=== PATIENT | female | born 1970 | race Caucasian/White ===

== ENCOUNTER → 2018-08-01 15:11 | Outpatient (CLI) | payer OTHER, SELFPAY ==
--- NOTE | 2018-08-01 15:16 | BI_ITS ---
MAMMOGRAPHY - BILATERAL SCREENING REASON FOR EXAM: Female, 48 years old. Routine annual screening examination. PERTINENT HISTORY: Grandmother with breast cancer. TECHNIQUE: Digital bilateral breast abby (3D mammographic acquisition) in the CC and MLO projections. 2-D mediolateral oblique (MLO) and craniocaudad (CC) views of both breasts were obtained. CAD: Full Field Digital Mammography with Computer Added Detection was performed. COMPARISON: Comparison is made with prior study June 12, 2017 and June 06, 2016. FINDINGS: Breast Composition: The breasts are heterogeneously dense, which may obscure small masses. There are no dominant masses or suspicious calcifications. Stable asymmetry of breast tissue but normal breast tissue seen in the right breast as compared to the left side. No other significant abnormalities are identified. There has been no significant change since the prior study. BI/SCREENING MAMM (CAD), BILAT IMPRESSION: Stable bilateral screening mammogram. Yearly follow-up mammogram recommended. (A) ASSESSMENT CATEGORY: BIRADS Category 2: Benign. A letter regarding these results will be sent to the patient by the facility within 30 days. Approximately 10% of breast cancers are not detected by mammography. A normal mammogram should not delay biopsy of a clinically suspicious abnormality. [id number] Electronically Signed: Lusi Radford MD at 16:01 EDT Tel [phone], Service support ,
== END ==
PROVIDERS: Family Provider Family Medicine; PCP Family Medicine; Visit Provider Family Medicine
DX: Z12.31 Encounter for screening mammogram for malignant neoplasm of breast (principal)
CPT/HCPCS: 77063; 77067

== ENCOUNTER → 2019-08-07 14:48 | Outpatient (CLI) | payer OTHER, SELFPAY ==
--- NOTE | 2019-08-07 14:50 | BI_ITS ---
MAMMOGRAPHY - BILATERAL SCREENING REASON FOR EXAM: Female, 49 years old. Routine annual screening examination. PERTINENT HISTORY: Grandmother with breast cancer. TECHNIQUE: Digital bilateral breast pelon (3D mammographic acquisition) in the CC and MLO projections. 2-D mediolateral oblique (MLO) and craniocaudad (CC) views of both breasts were obtained. CAD: Full Field Digital Mammography with Computer Added Detection was performed. COMPARISON: Comparison is made with prior study dated August 01, 2018 and June 12, 2017. FINDINGS: Breast Composition: The breasts are heterogeneously dense, which may obscure small masses. There are no dominant masses or suspicious calcifications. Stable asymmetry of breast tissue were more breast tissue is seen in the right breast as compared to the left side. No other significant abnormalities are identified. There has been no significant change since the prior study. BI/SCREEN MAMM (CAD) W/PELON BILAT IMPRESSION: Stable bilateral screening mammogram. Yearly follow-up mammogram recommended. (A) ASSESSMENT CATEGORY: BIRADS Category 2: Benign. A letter regarding these results will be sent to the patient by the facility within 30 days. Approximately 10% of breast cancers are not detected by mammography. A normal mammogram should not delay biopsy of a clinically suspicious abnormality. [id number] Electronically Signed: Luis Radford, at 8:30 EST , Service support ,
== END ==
PROVIDERS: Family Provider Family Medicine; PCP Family Medicine; Referring Provider Family Medicine; Visit Provider Family Medicine
DX: Z12.31 Encounter for screening mammogram for malignant neoplasm of breast (principal)
CPT/HCPCS: 77063; 77067

== ENCOUNTER → 2019-11-12 15:54 | Outpatient (CLI) | payer OTHER, SELFPAY ==
[2019-11-12 17:32] LABS: Absolute Lymphocyte Count 1.92 X10^3/uL (0.83-4.51); Basophil# 0.02 X10^3/uL; Basophil% 0.4 % (0-1); Eosinophil# 0.05 X10^3/uL; Eosinophils% 0.9 % (0-5); Hematocrit 40.1 % (37-47); Hemoglobin 13.7 g/dL (12.0-15.0); Lymphocyte # 1.92 X10^3/ul (4.0); Mean Corp Hgb Conc 34.2 g/dL (32-36); Mean Corpuscular Hgb 29.9 pg (27.0-32.0); Mean Corpuscular Volume 87.6 fL (81-99); Monocyte# 0.36 X10^3/uL; Monocyte% 6.8 % (0-10); NRBC Flagged by Analyzer 0 % (0-5); Neutrophil # 2.97 X10^3/uL (2.7-7.7); Neutrophil % 55.7 % (47-70); Platelet Count 251 K/mm3 (150-450); RBC Distribution Width CV 12.2 % (11.6-14.6); RBC Distribution Width SD 39.4 fl (35.1-43.9); Red Blood Count 4.58 M/mm3 (4.2-5.4); White Blood Count 5.3 K/mm3 (4.4-11.0)
[2019-11-12 17:51] LABS: ALB/GLOB Ratio 1.1 RATIO (0.9-2.4); AST(SGOT) 13 U/L (15-37); Alanine Aminotransfer ALT/SGPT 32 U/L (13-56); Albumin, Serum 3.9 g/dL (3.2-5.0); Alkaline Phosphatase 65 U/L (45-117); Anion Gap 5 (5-15); BUN 14 mg/dL (7-18); BUN/Creat Ratio 16.1 RATIO (10-20); Calcium,Total 9.6 mg/dL (8.5-10.1); Chloride 109 mmol/L (98-107); Creatinine, Serum 0.87 mg/dL (0.55-1.02); EST Glomerular Filtration Rate 73 mL/min (>60); Est Glom Filt Rate - Afr Amer 89 mL/min (>60); Globulin 3.6 g/dL (2.2-4.2); Glucose 85 mg/dL (74-106); Potassium 3.7 mmol/L (3.5-5.1); Protein, Total 7.5 g/dL (6.4-8.2); Sodium Level 140 mmol/L (136-145); Thyroid Stim Hormone (TSH) 1.95 uIU/mL (0.358-3.74)
== END ==
PROVIDERS: PCP Family Medicine; Visit Provider Family Medicine
DX: K76.0 Fatty (change of) liver, not elsewhere classified (principal); R53.83 Other fatigue
CPT/HCPCS: 36415; 80053; 84443; 85025

== ENCOUNTER 2019-11-26 07:58 | Day surgery (SDC) | payer OTHER, SELFPAY ==
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
[2019-11-26 08:26] VITALS: BP 146/86; PULSE 80; RESP 16; TEMP 37; O2SAT 98; BMI 31.3
[2019-11-26] MEDS: Lactated Ringers 1,000 ML 100 ML IV (08:40)
--- NOTE | 2019-11-26 09:15 | COLBX_PTH ---
PATIENT: JT MONTE LOC: EN U#:[id number] AGE/SX: 49/F ROOM: RE11/26/[address]: Dr. Rosio Matute MD : 1970 BED: DIS: 11/26/2019 SPEC #: [id number] RECD: 11/26/19 09:51 STATUS: TOMY YVETTE #: [id number] CEDRIC: 11/26/19 09:[address]: Rosio Matute DEPT: SURGICAL PATHOLOGY RECD BY: Partha Gaspar ENTERED: 11/26/19 10:26 SP TYPE: COLON BX OTHR DR: MD Jerel West Tissues: Cecum, NOS Procedures: Surgery Specimen Level IV HEADER OPERATION: Colonoscopy - open access (MAC) PRE-OP DIAGNOSIS: Screening TISSUE SUBMITTED: Cecum polyp MICROSCOPIC DIAGNOSIS Cecal polyp, biopsy: Fragments of tubular adenoma. AM:singh 11/27/19 MICROSCOPIC DESCRIPTION Slides are reviewed. GROSS DESCRIPTION Received in fixative is one container labeled with the patient's name and designated cecum polyp. The specimen consists of multiple irregular fragments of light meier soft tissue that in aggregate measure 0.7 x 0.5 x 0.2 cm. The specimen is totally submitted in one cassette. / EVA:singh 11/26/19 TC:5 CPT: 55066
[2019-11-26 09:25] VITALS: BP 131/78; BP 148/86; PULSE 83; RESP 16; TEMP 36.6; O2SAT 96
--- NOTE | 2019-11-26 09:27 | OP.COLON_ITS ---
Patient Name: Mare Lozano Procedure Date: 11/26/2019 8:47 AM Date of : 1970 Age: 49 Procedure: Colonoscopy Indications: Screening for colorectal malignant neoplasm, Screening in patient at increased risk: Colorectal cancer in mother 60 or older Providers: Rosio Matute MD Referring MD: Jerel Moffett Medicines: Monitored Anesthesia Care Patient Profile: This is a 49 year old female. Last Colonoscopy: none. The patient's first colonoscopy is today. Complications: No immediate complications. Procedure: Pre-Anesthesia Assessment: - Prior to the procedure, a History and Physical was performed, and patient medications and allergies were reviewed. The patient's tolerance of previous anesthesia was also reviewed. The risks and benefits of the procedure and the sedation options and risks were discussed with the patient. All questions were answered, and informed consent was obtained. Prior Anticoagulants: The patient has taken no previous anticoagulant or antiplatelet agents. ASA Grade Assessment: Per anesthesia. After reviewing the risks and benefits, the patient was deemed in satisfactory condition to undergo the procedure. After I obtained informed consent, the scope was passed under direct vision. Throughout the procedure, the patient's blood pressure, pulse, and oxygen saturations were monitored continuously. The pediatric colonoscope was introduced through the anus and advanced to the cecum, identified by the appendiceal orifice, ileocecal valve and palpation. The colonoscopy was performed without difficulty. The patient tolerated the procedure well. The quality of the bowel preparation was good. Scope In: 9:00:25 AM Scope Withdrawal Time 0 hours 8 minutes 27 seconds Scope Out: 9:18:53 AM Total Procedure Duration Time 0 hours 18 minutes 28 seconds Findings: The perianal and digital rectal examinations were normal. A 5 mm polyp was found in the cecum. The polyp was semi-pedunculated. The polyp was removed with a hot snare. Resection and retrieval were complete. A few small-mouthed diverticula were found in the sigmoid colon, descending colon and ascending colon. The exam was otherwise without abnormality on direct and retroflexion views. Impression: - One 5 mm polyp in the cecum, removed with a hot snare. Resected and retrieved. - Diverticulosis in the sigmoid colon, in the descending colon and in the ascending colon. - The examination was otherwise normal on direct and retroflexion views. Recommendation: - Discharge patient to home. - High fiber diet. - Continue present medications. - Await pathology results. - Repeat colonoscopy in 3 - 5 years for surveillance based on pathology results. Procedure Code(s): --- Professional --- 09607, PT, Colonoscopy, flexible; with removal of tumor(s), polyp(s), or other lesion(s) by snare technique Diagnosis Code(s): --- Professional --- Z12.11, Encounter for screening for malignant neoplasm of colon Z80.0, Family history of malignant neoplasm of digestive organs D12.0, Benign neoplasm of cecum K57.30, Diverticulosis of large intestine without perforation or abscess without bleeding CPT copyright 2017 [employer]. All rights reserved. The codes documented in this report are preliminary and upon social economist review may be revised to meet current compliance requirements. MD Rosio Carmen MD 11/26/2019 9:27:29 AM This report has been signed electronically. Number of Addenda: 0 Note Initiated On: 11/26/2019 8:47 AM
--- NOTE | 2019-11-26 09:28 | OP.CCLET_ITS ---
11/26/2019 Jerel Moffett Re : Colonoscopy procedure for Mare Lozano Dear Zuhair This procedure was performed on Tuesday, November 26, 2019. My impressions and recommendations are as follows: Impressions : - One 5 mm polyp in the cecum, removed with a hot snare. Resected and retrieved. - Diverticulosis in the sigmoid colon, in the descending colon and in the ascending colon. - The examination was otherwise normal on direct and retroflexion views. Recommendations : - Discharge patient to home. - High fiber diet. - Continue present medications. - Await pathology results. - Repeat colonoscopy in 3 - 5 years for surveillance based on pathology results. My findings are described in the full procedure note, which is enclosed. If I can be of further assistance, please feel free to contact me at Doctor phone number(s): , Work: . Sincerely, MD Rosio Carmen MD 11/26/2019 9:27:29 AM This report has been signed electronically.
[2019-11-26 09:30] VITALS: BP 125/85; BP 148/86; PULSE 80; RESP 16; O2SAT 98
[2019-11-26 09:35] VITALS: BP 128/75; BP 148/86; PULSE 65; RESP 16; O2SAT 98
[2019-11-26 09:46] VITALS: BP 121/83; BP 148/86; PULSE 72; RESP 16; TEMP 36.5; O2SAT 98
[2019-11-26 10:03] VITALS: BP 148/86
== END 2019-11-26 10:46 | disposition home or self-care (01) ==
LOC: EN 07:59 → AC 08:02
PROVIDERS: PCP Family Medicine; Referring Provider Family Medicine; Visit Provider Surgery
PROC: 0DJD8ZZ Inspection of Lower Intestinal Tract, Via Natural or Artificial Opening Endoscopic (ICD-10-PCS; CPT 45378; principal; 2019-11-26 09:10)
DX: Z12.11 Encounter for screening for malignant neoplasm of colon (principal); D12.0 Benign neoplasm of cecum; K57.30 Diverticulosis of large intestine without perforation or abscess without bleeding; K21.9 Gastro-esophageal reflux disease without esophagitis; Z85.828 Personal history of other malignant neoplasm of skin; Z80.0 Family history of malignant neoplasm of digestive organs
CPT/HCPCS: 45385; 88305; J7120; J2405

== ENCOUNTER → 2020-08-18 10:04 | Outpatient (CLI) | payer OTHER, SELFPAY ==
[2020-08-18 12:27] LABS: Absolute Lymphocyte Count 1.52 X10^3/uL (0.83-4.51); Absolute Neutrophil Count 2.4 X10^3/uL (2.0-7.7); Basophil# 0.01 X10^3/uL; Basophil% 0.2 % (0-1); Eosinophil# 0.07 X10^3/uL; Eosinophils% 1.6 % (0-5); Hematocrit 42.2 % (37-47); Hemoglobin 13.7 g/dL (12.0-15.0); Lymphocyte # 1.52 X10^3/ul (4.0); Mean Corp Hgb Conc 32.5 g/dL (32-36); Mean Corpuscular Hgb 29.3 pg (27.0-32.0); Mean Corpuscular Volume 90.4 fL (81-99); Mean Platelet Vol. 10.6 fl (6.2-12.0); Monocyte# 0.34 X10^3/uL; Monocyte% 7.8 % (0-10); NRBC Flagged by Analyzer 0 % (0-5); Neutrophil # 2.39 X10^3/uL (2.7-7.7); Neutrophil % 55.2 % (47-70); Platelet Count 263 K/mm3 (150-450); RBC Distribution Width SD 39.9 fl (35.1-43.9); Red Blood Count 4.67 M/mm3 (4.2-5.4); White Blood Count 4.3 K/mm3 (4.4-11.0)
[2020-08-18 13:09] LABS: Anion Gap 6 (5-15); BUN 12 mg/dL (7-18); BUN/Creat Ratio 13.3 RATIO (10-20); Calcium,Total 9.1 mg/dL (8.5-10.1); Chloride 107 mmol/L (98-107); EST Glomerular Filtration Rate 70 mL/min (>60); Est Glom Filt Rate - Afr Amer 85 mL/min (>60); Glucose 80 mg/dL (74-106); Magnesium 2.2 mg/dL (1.6-2.6); Potassium 3.6 mmol/L (3.5-5.1); Sodium Level 141 mmol/L (136-145); T4 Free Direct 1.11 ng/dL (0.76-1.46); Thyroid Stim Hormone (TSH) 1.34 uIU/mL (0.358-3.74)
== END ==
PROVIDERS: PCP Family Medicine; Visit Provider Family Medicine
DX: I49.3 Ventricular premature depolarization (principal); R00.2 Palpitations
CPT/HCPCS: 36415; 80048; 83735; 84439; 84443; 85025

== ENCOUNTER → 2020-08-30 15:01 | Outpatient (CLI) | payer OTHER, SELFPAY ==
--- NOTE | 2020-08-30 15:03 | BI_ITS ---
MAMMOGRAPHY - BILATERAL SCREENING REASON FOR EXAM: Female, 50 years old. Routine annual screening examination. PERTINENT HISTORY: Grandmother with breast cancer. TECHNIQUE: Digital bilateral breast pelon (3D mammographic acquisition) in the CC and MLO projections. 2-D mediolateral oblique (MLO) and craniocaudad (CC) views of both breasts were obtained. CAD: Full Field Digital Mammography with Computer Added Detection was performed. COMPARISON: Comparison is made with prior study dated 08/07/2019 and 08/01/2018. FINDINGS: Breast Composition: The breasts are heterogeneously dense, which may obscure small masses. There are no dominant masses or suspicious calcifications. Stable asymmetry of breast tissue with more breast tissue is seen in the right breast as compared to the left side. No other significant abnormalities are identified. There has been no significant change since the prior study. BI/SCREEN MAMM (CAD) W/PELON BILAT IMPRESSION: Stable bilateral screening mammogram. Yearly follow-up mammogram recommended. (A) ASSESSMENT CATEGORY: BIRADS Category 2: Benign. A letter regarding these results will be sent to the patient by the facility within 30 days. Approximately 10% of breast cancers are not detected by mammography. A normal mammogram should not delay biopsy of a clinically suspicious abnormality. [id number] Electronically Signed: Luis Radford, at 15:57 EST , Service support ,
== END ==
PROVIDERS: PCP Family Medicine; Referring Provider Family Medicine; Visit Provider Family Medicine
DX: Z12.31 Encounter for screening mammogram for malignant neoplasm of breast (principal)
CPT/HCPCS: 77063; 77067

== ENCOUNTER → 2020-11-02 08:42 | Outpatient (CLI) | payer OTHER, SELFPAY ==
--- NOTE | 2020-11-02 08:53 | VDLE_ITS ---
Reason For Study: DVT Procedure LEFT This is a venous duplex using B-mode, color GSV is normal. flow and spectral Doppler. CFV is compressible, spontaneous, phasic, Exam performed in department. competent, and demonstrates normal The exam was abbreviated due to the COVID 19 augmentation. protocol. FV is compressible, spontaneous, phasic, The exam was diagnostic. competent and demonstrates normal A preliminary report was called and/or faxed augmentation. to Dr. Moffett. T/P Trunk is compressible. PTV is compressible. LT PerV is compressible. Gastroc V is dilated and noncompressible. Extension into the POP V is noted. POP V is partially compressible with decreased flow. Interpretation Summary Acute deep vein thrombosis is noted in the left popliteal vein. Acute deep vein thrombosis is noted in the left gastrocnemius vein. The remainder of the left lower extremity deep venous system is patent and compressible. The left common femoral vein and femoral vein are competent. The left great saphenous vein appears patent and compressible segmentally. Ordering Physician: Jerel Moffett Performed By: Paras Ortez RVT
== END ==
PROVIDERS: PCP Family Medicine; Referring Provider Family Medicine; Visit Provider Family Medicine
DX: M79.662 Pain in left lower leg (principal)
CPT/HCPCS: 93971

== ENCOUNTER → 2020-11-19 14:51 | Outpatient (CLI) | payer OTHER, SELFPAY | PROVIDERS: PCP Family Medicine; Visit Provider Family Medicine | DX: I82.462 Acute embolism and thrombosis of left calf muscular vein (principal) | CPT/HCPCS: 36415; 81291 ==

== ENCOUNTER → 2021-09-09 11:54 | Outpatient (CLI) | payer OTHER, SELFPAY ==
--- NOTE | 2021-09-09 11:56 | BI_ITS ---
MAMMOGRAPHY - BILATERAL SCREENING REASON FOR EXAM: Female, 51 years old. Routine annual screening examination. PERTINENT HISTORY: Grandmother with breast cancer. TECHNIQUE: Digital bilateral breast pelon (3D mammographic acquisition) in the CC and MLO projections. 2-D mediolateral oblique (MLO) and craniocaudad (CC) views of both breasts were obtained. CAD: Full Field Digital Mammography with Computer Added Detection was performed. COMPARISON: Comparison is made with prior examination dated 08/30/2020 and 08/07/2019. FINDINGS: Breast Composition: The breasts are heterogeneously dense, which may obscure small masses. There are no dominant masses or suspicious calcifications. Once again, there is stable asymmetry of breast tissue with more breast tissue is seen in the upper outer quadrant of the right breast as compared to the left side. Stable small benign-appearing bilateral axillary lymph nodes. No other significant abnormalities are identified. There has been no significant change since the prior study. BI/SCRN MAMM (CAD)W/PELON BILAT IMPRESSION: Stable bilateral screening mammogram. Yearly follow-up mammogram recommended. (A) ASSESSMENT CATEGORY: BIRADS Category 2: Benign. A letter regarding these results will be sent to the patient by the facility within 30 days. Approximately 10% of breast cancers are not detected by mammography. A normal mammogram should not delay biopsy of a clinically suspicious abnormality. [id number] Electronically Signed: Luis Radford MD at 12:45 EST , Service support ,
== END ==
PROVIDERS: PCP Family Medicine; Referring Provider Family Medicine; Visit Provider Family Medicine
DX: Z12.31 Encounter for screening mammogram for malignant neoplasm of breast (principal); Z80.3 Family history of malignant neoplasm of breast
CPT/HCPCS: 77063; 77067

== ENCOUNTER → 2022-03-07 | Outpatient (CLI) | payer OTHER, SELFPAY | END | disposition home or self-care (01) | PROVIDERS: PCP Family Medicine; Visit Provider Family Medicine | DX: R30.0 Dysuria (principal) | CPT/HCPCS: 87086; 87088 ==

== ENCOUNTER → 2022-09-18 | Outpatient (CLI) | payer OTHER, SELFPAY ==
--- NOTE | 2022-09-18 12:06 | BI_ITS ---
MAMMOGRAPHY - BILATERAL SCREENING REASON FOR EXAM: Female, 52 years old. Routine annual screening examination. PERTINENT HISTORY: Grandmother with breast cancer. TECHNIQUE: Digital bilateral breast pelon (3D mammographic acquisition) in the CC and MLO projections. 2-D mediolateral oblique (MLO) and craniocaudad (CC) views of both breasts were obtained. CAD: Full Field Digital Mammography with Computer Added Detection was performed. COMPARISON: Comparison is made with prior examination dated 09/09/2021 and 08/30/2020. FINDINGS: Breast Composition: The breasts are heterogeneously dense, which may obscure small masses. There are no dominant masses or suspicious calcifications. Stable asymmetry of breast tissue with more breast tissue is seen in the upper-outer quadrant of the right breast as compared to the left side. Stable fat-containing bilateral axillary lymph nodes. No other significant abnormalities are identified. There has been no significant change since the prior study. BI/SCRN MAMM (CAD)W/PELON BILAT IMPRESSION: Stable bilateral screening mammogram. Yearly follow-up mammogram recommended. (A) ASSESSMENT CATEGORY: BIRADS Category 2: Benign. A letter regarding these results will be sent to the patient by the facility within 30 days. Approximately 10% of breast cancers are not detected by mammography. A normal mammogram should not delay biopsy of a clinically suspicious abnormality. [id number] Electronically Signed: Luis Radford MD at 15:37 EST ,
== END | disposition home or self-care (01) ==
LOC: OPBI 12:02
PROVIDERS: PCP Family Medicine; Referring Provider Family Medicine; Visit Provider Family Medicine
DX: Z12.31 Encounter for screening mammogram for malignant neoplasm of breast (principal); Z80.3 Family history of malignant neoplasm of breast
CPT/HCPCS: 77063; 77067

== ENCOUNTER → 2023-09-19 | Outpatient (CLI) | payer OTHER, SELFPAY ==
--- NOTE | 2023-09-19 09:55 | BI_ITS ---
MAMMOGRAPHY - BILATERAL SCREENING REASON FOR EXAM: Female, 53 years old. Routine annual screening examination. PERTINENT HISTORY: Grandmother with breast cancer. TECHNIQUE: Digital bilateral breast pelon (3D mammographic acquisition) in the CC and MLO projections. 2-D mediolateral oblique (MLO) and craniocaudad (CC) views of both breasts were obtained. CAD: Full Field Digital Mammography with Computer Added Detection was performed. COMPARISON: Comparison is made with prior study dated September 18, 2022 and September 09, 2021. FINDINGS: Breast Composition: The breasts are heterogeneously dense, which may obscure small masses. There are no dominant masses or suspicious calcifications. Stable asymmetry of breast tissue where more breast tissue is seen in the upper-outer quadrant of the right breast as compared to the left side. Stable bilateral fat containing axillary lymph nodes. No other significant abnormalities are identified. There has been no significant change since the prior study. BI/SCRN MAMM (CAD)W/PELON BILAT IMPRESSION: Stable bilateral screening mammogram. Yearly follow-up mammogram recommended. (A) ASSESSMENT CATEGORY: BIRADS Category 2: Benign. A letter regarding these results will be sent to the patient by the facility within 30 days. Approximately 10% of breast cancers are not detected by mammography. A normal mammogram should not delay biopsy of a clinically suspicious abnormality. [id number] Electronically Signed: Luis Radford MD at 11:00 EST ,
== END | disposition home or self-care (01) ==
LOC: OPBI 09:54
PROVIDERS: PCP Family Medicine; Visit Provider Nurse Practitioner Family
DX: Z12.31 Encounter for screening mammogram for malignant neoplasm of breast (principal)
CPT/HCPCS: 77063; 77067

== ENCOUNTER 2024-03-11 09:47 | Day surgery (SDC) | payer OTHER, SELFPAY ==
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
[2024-03-11 10:17] VITALS: BP 180/79; PULSE 83; RESP 18; TEMP 36.6; O2SAT 100; BMI 34.6
[2024-03-11] MEDS: Lactated Ringers 1,000 ML 15 ML IV (10:22)
--- NOTE | 2024-03-11 11:15 | COLBX_PTH ---
PATIENT: JT MONTE LOC: EN U#:[id number] AGE/SX: 53/F ROOM: RE03/11/[address]: Dr. 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 Ascending colon polyp, biopsy: Hyperplastic polyp. B. Colonic polyp at hepatic flexure, biopsy: Fragments of tubular adenoma. / 03/12/2024 MICROSCOPIC DESCRIPTION Slides are reviewed. GROSS DESCRIPTION A. Received in fixative is one container labeled with the patient's name and designated Ascending polyp. The specimen consists of one irregular fragment of light meier soft tissue that measures 0.4 x 0.2 x 0.1 cm. The specimen is totally submitted in one cassette. B. Received in fixative is one container labeled with the patient's name and designated Hepatic flexure polyp. The specimen consists of multiple irregular fragments of light meier soft tissue that in aggregate measure 1.0 x 0.3 x 0.1 cm. The specimen is totally submitted in one cassette. / 03/11/2024 TC:5 [facility]:[id number]
[2024-03-11 11:36] VITALS: BP 127/71; BP 180/79; PULSE 81; RESP 16; TEMP 36.2; O2SAT 96
[2024-03-11 11:40] VITALS: BP 122/60; BP 180/79; PULSE 80; RESP 16; O2SAT 97
--- NOTE | 2024-03-11 11:41 | OP.CCLET_ITS ---
03/11/2024 Ha Leone Re : Colonoscopy procedure for Mare Lozano Dear Kendrick This procedure was performed on Monday, March 11, 2024. My impressions and recommendations are as follows: Impressions : - Diverticulosis in the sigmoid colon and in the ascending colon. - One less than 5 mm polyp in the ascending colon, removed with a cold biopsy forceps. Resected and retrieved. - One less than 5 mm polyp at the hepatic flexure, removed with a hot snare. Resected and retrieved. - The examination was otherwise normal. Recommendations : - Discharge patient to home. - Resume previous diet. - Continue present medications. - Resume Eliquis (apixaban) at prior dose tomorrow. - Repeat colonoscopy in 5 years for surveillance based on pathology results. My findings are described in the full procedure note, which is enclosed. If I can be of further assistance, please feel free to contact me at Doctor phone number(s): , Work: . Sincerely, MD Rosio Carmen MD 03/11/2024 11:40:44 AM This report has been signed electronically.
--- NOTE | 2024-03-11 11:41 | OP.COLON_ITS ---
Patient Name: Mare Lozano Procedure Date: 03/11/2024 11:00 AM Date of : 1970 Age: 53 Procedure: Colonoscopy Indications: High risk colon cancer surveillance: Personal history of colonic polyps Providers: Rosio Matute MD Referring MD: Ha Leone Medicines: Monitored Anesthesia Care Patient Profile: This is a 53 year old female. Last Colonoscopy: November 2019. Complications: No immediate complications. Procedure: Pre-Anesthesia Assessment: - Prior to the procedure, a History and Physical was performed, and patient medications and allergies were reviewed. The patient's tolerance of previous anesthesia was also reviewed. The risks and benefits of the procedure and the sedation options and risks were discussed with the patient. All questions were answered, and informed consent was obtained. Prior Anticoagulants: The patient has taken Eliquis (apixaban), last dose was 3 days prior to procedure. ASA Grade Assessment: Per anesthesia. After reviewing the risks and benefits, the patient was deemed in satisfactory condition to undergo the procedure. After I obtained informed consent, the scope was passed under direct vision. Throughout the procedure, the patient's blood pressure, pulse, and oxygen saturations were monitored continuously. The pediatric colonoscope was introduced through the anus and advanced to the cecum, identified by the appendiceal orifice, ileocecal valve and palpation. The colonoscopy was somewhat difficult due to a tortuous colon. The patient tolerated the procedure well. The quality of the bowel preparation was good. Scope In: 11:05:43 AM Scope Withdrawal Time 0 hours 13 minutes 50 seconds Scope Out: 11:31:02 AM Total Procedure Duration Time 0 hours 25 minutes 19 seconds Findings: The perianal and digital rectal examinations were normal. A few small-mouthed diverticula were found in the sigmoid colon and ascending colon. A less than 5 mm polyp was found in the ascending colon. The polyp was sessile. The polyp was removed with a cold biopsy forceps. Resection and retrieval were complete. A less than 5 mm polyp was found in the hepatic flexure. The polyp was semi-pedunculated. The polyp was removed with a hot snare. Resection and retrieval were complete. The exam was otherwise without abnormality. Impression: - Diverticulosis in the sigmoid colon and in the ascending colon. - One less than 5 mm polyp in the ascending colon, removed with a cold biopsy forceps. Resected and retrieved. - One less than 5 mm polyp at the hepatic flexure, removed with a hot snare. Resected and retrieved. - The examination was otherwise normal. Recommendation: - Discharge patient to home. - Resume previous diet. - Continue present medications. - Resume Eliquis (apixaban) at prior dose tomorrow. - Repeat colonoscopy in 5 years for surveillance based on pathology results. Procedure Code(s): --- Professional --- 57344, PT, Colonoscopy, flexible; with removal of tumor(s), polyp(s), or other lesion(s) by snare technique 11349, 59, Colonoscopy, flexible; with biopsy, single or multiple Diagnosis Code(s): --- Professional --- Z86.010, Personal history of colonic polyps D12.2, Benign neoplasm of ascending colon D12.3, Benign neoplasm of transverse colon (hepatic flexure or splenic flexure) K57.30, Diverticulosis of large intestine without perforation or abscess without bleeding CPT copyright 2021 [employer]. All rights reserved. The codes documented in this report are preliminary and upon senior validation engineer review may be revised to meet current compliance requirements. MD Rosio Carmen MD 03/11/2024 11:40:44 AM This report has been signed electronically. Number of Addenda: 0 Note Initiated On: 03/11/2024 11:00 AM
[2024-03-11 11:45] VITALS: BP 127/76; BP 180/79; PULSE 68; RESP 16; O2SAT 98
[2024-03-11 11:50] VITALS: BP 134/75; BP 180/79; PULSE 71; RESP 16; TEMP 36.3; O2SAT 94
[2024-03-11 12:24] VITALS: BP 180/79
== END 2024-03-11 12:39 | disposition home or self-care (01) ==
LOC: EN 09:48 → AC 09:48
PROVIDERS: PCP Nurse Practitioner Family; Referring Provider Nurse Practitioner Family; Visit Provider Surgery
PROC: 0DJD8ZZ Inspection of Lower Intestinal Tract, Via Natural or Artificial Opening Endoscopic (ICD-10-PCS; CPT 45378; principal; 2024-03-11 11:10)
DX: Z12.11 Encounter for screening for malignant neoplasm of colon (principal); K63.5 Polyp of colon; Z80.0 Family history of malignant neoplasm of digestive organs; Z79.01 Long term (current) use of anticoagulants; K57.30 Diverticulosis of large intestine without perforation or abscess without bleeding; E78.00 Pure hypercholesterolemia, unspecified; Z86.010 Personal history of colon polyps; Z86.718 Personal history of other venous thrombosis and embolism
CPT/HCPCS: 45385; 45380; 88305; J7120; J2405

== ENCOUNTER → 2024-09-30 | Outpatient (CLI) | payer OTHER, SELFPAY ==
--- NOTE | 2024-09-30 11:49 | BI_ITS ---
MAMMOGRAPHY - BILATERAL SCREENING 3-D TOMOSYNTHESIS REASON FOR EXAM: Female, 54 years old. SCREENING PERTINENT HISTORY: No significant family history. TECHNIQUE: 2-D mammograms and 3-D Tomosynthesis of the breast (s) were performed. CAD was performed. COMPARISON: 09/19/2023 FINDINGS: The breast composition is composed of scattered fibroglandular density. Scattered benign calcifications are seen. No dense spiculated masses or suspicious microcalcifications are identified. No architectural distortion is identified. There is no skin thickening or retraction. There has been no significant change since the prior study. BI/SCRN MAMM (CAD)W/PELON BILAT IMPRESSION: No mammographic signs of malignancy. Routine yearly mammograms recommended. ASSESSMENT CATEGORY: BIRADS Category 1: Negative. A letter regarding these results will be sent to the patient by the facility within 30 days. FOLLOW UP RECOMMENDATION: Yearly follow up mammogram recommended. (A) Approximately 10% of breast cancers are not detected by mammography. A normal mammogram should not delay biopsy of a clinically suspicious abnormality. Electronically Signed: Blake Koch MD at 19:52 EST ,
== END | disposition home or self-care (01) ==
LOC: OPBI 11:46
PROVIDERS: PCP Nurse Practitioner Family; Referring Provider Nurse Practitioner Family; Visit Provider Nurse Practitioner Family
DX: Z12.31 Encounter for screening mammogram for malignant neoplasm of breast (principal)
CPT/HCPCS: 77063; 77067

== ENCOUNTER 2024-11-17 08:30 | Day surgery (SDC) | payer OTHER, SELFPAY ==
[2024-11-17] VITALS (7 sets, daily range): BP systolic 127–163; BP diastolic 71–85; PULSE 73–87; RESP 16; TEMP 36.3–36.6; O2SAT 96–100; BMI 36.2
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
--- NOTE | 2024-11-17 10:03 | PCM.PRE.AN2 ---
ASA Classification* ASA Classification ASA Classification: 2 Assessment & Plan Anesthesia* Anesthesia Assessment Anesthesia Assessment: Discussed sedation and/or anesthesia options, risks, benefits, and alternatives with patient/parents/legal guardian/POA. Questions invited. The patient/parents/legal guardian/POA seems to understand and agrees to proceed with anesthesia plan. Reviewed the physical assessment, medical history, allergy history and patient home medications list prior to surgery/procedure/anesthetic and documented any changes. Performed airway and anesthesia risk assessments. Anesthesia Type Anesthesia Type: MAC Anesthesia Focused Assessment* Temperature: 98 F Pulse Rate: 78 Blood Pressure: 163/85 Respiratory Rate: 16 Pulse Ox: 100 Airway Assessment Mouth opens: >3 cm Mallampati Score: II Focused Labs Anesthesia Preop lab: CBC WBC 4.3 K/mm3 (4.4-11.0) L 08/18/20 10:06 08/18/20 RBC 4.67 M/mm3 (4.2-5.4) 08/18/20 10:06 08/18/20 Hgb 13.7 g/dL (12.0-15.0) 08/18/20 10:06 08/18/20 Hct 42.2 % (37-47) 08/18/20 10:06 08/18/20 Plt Count 263 K/mm3 (150-450) 08/18/20 10:06 08/18/20 CHEMISTRY Potassium 3.6 mmol/L (3.5-5.1) 08/18/20 10:06 08/18/20 Sodium 141 mmol/L (136-145) 08/18/20 10:06 08/18/20 Magnesium 2.2 mg/dL (1.6-2.6) 08/18/20 10:06 08/18/20 BUN 12 mg/dL (7-18) 08/18/20 10:06 08/18/20 Creatinine 0.90 mg/dL (0.55-1.02) 08/18/20 10:06 08/18/20 Glucose 80 mg/dL (74-106) 08/18/20 10:06 08/18/20 TSH 1.34 uIU/mL (0.358-3.74) 08/18/20 10:06 08/18/20 COAG Pre-Assessment Diagnosis/Proposed Procedure Planned Operative Procedure(s): EGD Anesthesia History 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 When Was Last Pacemaker Check QUESTION #4 FULL TEXT: You/Your Family Experience fever (hyperthermia) with Anesthesia Last Oral Intake Last Oral intake: Last Oral Intake NPO since 21:00 11/17/24 09:08 Meds taken in AM with sips of No 11/17/24 09:08 water? Meds patient instructed to take am of surgery PONV PONV - supervisor paste plant: PONV - supervisor paste plant Female Yes 11/12/24 11:30 HX of Motion Sickness No 11/12/24 11:30 HX of N/V After Surgery No 11/12/24 11:30 Non-Smoker Yes 11/12/24 11:30 Duration of Surgery greater No 11/12/24 11:30 than 60 minutes Number of Risk Factors 2 11/12/24 11:30 PONV Score Moderate Risk 11/12/24 11:30 Height & Weight Height & Weight: Anesthesia: Height & Weight Height 5 ft 5 in 11/17/24 09:08 Weight: 98.8 kg 11/17/24 09:08 Body Mass Index (BMI) 36.2 11/17/24 09:08 Respiratory Assessment Respiratory Assessment - supervisor paste plant: Respiratory Tract Infection Hx - supervisor paste plant Hx Respiratory Tract Infection No 11/17/24 08:44 STOP Sleep Apnea STOP Sleep Apnea - supervisor paste plant: STOP Sleep Apnea - supervisor paste plant Hx Hypertension No 11/17/24 08:44 Hx Sleep Apnea No 11/17/24 08:44 CPAP BIPAP Do you snore loudly (louder No 11/17/24 08:44 than talking or can be heard Do you often feel tired/ No 11/17/24 08:44 fatigued/ sleepy during daytime? Has anyone observed you stop No 11/17/24 08:44 breathing during sleep? STOP Results Negative 11/17/24 09:12 QUESTION #5 FULL TEXT : Do you snore loudly (louder than talking or can be heard through closed doors)? 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 Specify any problems Hx of Preganancy in last 3 No 11/12/24 11:30 Months Nurse Filling Out Transfusion VCHRISTIN 11/12/24 11:30 & Questions: Date: 11/12/24 11/12/24 11:30 Time: 11:30 11/12/24 11:30 Patient unable to answer at this time (ie. confused, unrespo /Reproduction History /Reproductive History - supervisor paste plant: /Reproductive Hx- supervisor paste plant Hx Now No 11/17/24 08:44 Gestational Age (in weeks): EDC: Hx Hx Para Hx Section SAB No 11/12/24 11:30 PFSH Medical History Abdominal pain Post-menopausal Wears dentures Cancer Bladder disease Fatty liver High cholesterol Back pain Injury of back History of IBS History of diverticulitis Gastric reflux Shortness of breath on exertion Non-smoker History of DVT of lower extremity Family history of colon cancer in mother Hx of colonic polyp Home Medications ?Medication ?Instructions ?Recorded ?Last Taken ?Type apixaban 5 mg tablet (Eliquis) 5 mg PO BID 02/01/24 11/13/24 History cholecalciferol (vitamin D3) 50 50 mcg PO DAILY 02/01/24 11/13/24 History mcg (2,000 unit) capsule Allergy/AdvReac Type Severity Reaction Status Date / Time No Known Allergies Allergy Verified 11/17/24 09:07 Family History Mother Colon cancer, Onset Age: 69 Heart disease Diabetes Father Heart disease Surgical History S/P wisdom tooth extraction Hx of esophagogastroduodenoscopy Hx of colonoscopy Social History household members: children current occupational status: employed Smoking Status: Never smoker alcohol intake: never substance use type: does not use Review of Systems (Anesthesia) ROS Narrative System reviewed and no additional complaints, except as documented.
--- NOTE | 2024-11-17 10:15 | EGD_PTH ---
PATIENT: JT MONTE LOC: EN U#:[id number] AGE/SX: 54/F ROOM: RE11/17/[address]: Dr. Rosio Matute MD : 1970 BED: DIS: 11/17/2024 SPEC #: [id number] RECD: 11/17/24 13:36 STATUS: TOMY RERafael #: [id number] CEDRIC: 11/17/24 10:[address]: Rosio Matute DEPT: SURGICAL PATHOLOGY RECD BY: Pietro Wong ENTERED: 11/17/24 13:46 SP TYPE: EGD BIOPSY OT DR: Clare Marks, REPAIRER-C Tissues: A - Gastric mucous membrane B - Gastric mucous membrane C - Gastric mucous membrane D - Gastric mucous membrane Procedures: Surgery Specimen Level IV HEADER OPERATION: EGD biopsy and biopsy of gastric polyp PRE-OP DIAGNOSIS: Abdominal pain TISSUE SUBMITTED: A- Gastric antrum biopsy, B- Gastric body biopsy, C- Gastric polyp biopsy,D- Gastroesophageal junction biopsy MICROSCOPIC DIAGNOSIS A. Gastric antrum , biopsy: Reactive gastropathy with focal chronic inflammation. See comment. B. Gastric body, biopsy: Mixed fundic gland / hyperplastic gastric polyp. C. Gastric polyp, biopsy: Fragments of gastric mucosa with focal chronic inflammation. D. Gastroesophageal junction, biopsy: Squamous mucosa showing changes suggestive of mild acute reflux esophagitis. Minimal glandular material for evaluation. Negative for intestinal metaplasia / Torres's esophagus. Negative for dysplasia. Negative for eosinophilic esophagitis. See comment. MARSHALL/ 11/18/2024 COMMENT A, B. The results of immunohistochemistry for Helicobacter pylori will be reported separately ([id number]). Specimens B & C may have been switched as the actual gastric polyp is seen in specimen (B) and the actual gastric body biopsy is seen in specimen (C). Clinical correlation necessary. MICROSCOPIC DESCRIPTION Slides are reviewed. GROSS DESCRIPTION A. Received in fixative is one container labeled with the patient's name and designated Gastric antrum biopsy. The specimen consists of one irregular fragment of light meier soft tissue that measures 0.3 x 0.2 x 0.1 cm. The specimen is totally submitted in one cassette. B. Received in fixative is one container labeled with the patient's name and designated Gastric body biopsy. The specimen consists of one irregular fragment of light meier soft tissue that measures 0.4 x 0.3 x 0.1 cm. The specimen is totally submitted in one cassette. C. Received in fixative is one container labeled with the patient's name and designated Gastric polyp biopsy. The specimen consists of multiple irregular fragments of light meier soft tissue that in aggregate measure 1 x 0.3 x 0.1 cm. The specimen is totally submitted in one cassette. D. Received in fixative is one container labeled with the patient's name and designated GE junction biopsy. The specimen consists of one irregular fragment of light meier soft tissue that measures 0.3 x 0.3 x 0.1 cm. The specimen is totally submitted in one cassette. SJ.mr 11/17/2024 TC:3 CPT:59726g5
--- NOTE | 2024-11-17 10:15 | IMM_PTH ---
PATIENT: JT MONTE LOC: EN U#:[id number] AGE/SX: 54/F ROOM: RE11/17/[address]: Dr. Rosio Matute MD : 1970 BED: DIS: 11/17/2024 SPEC #: [id number] RECD: 11/17/24 13:52 STATUS: TOMY REQ #: [id number] CEDRIC: 11/17/24 10:[address]: Rosio Matute DEPT: IMMUNOHISTOCHEMISTRY RECD BY: Klio Chavis ENTERED: 11/17/24 13:53 SP TYPE: IMMUNO OTHR DR: Clare Marks, AIRWORTHINESS SAFETY INSPECTOR-C Tissues: A - Gastric mucous membrane B - Gastric mucous membrane Procedures: H Pylori (initial) PHYSICIAN & [place] [id number] SPECIMEN INFORMATION: Tissue Source: A- Gastric antrum biopsy, B- Gastric body biopsy Clinical Info: Abdominal pain Specimen Number: [id number] A, B CPT code: 59760x1 METHODOLOGY: Deparaffinized sections of prefer/formalin-fixed tissue or PAP/DQ stained slides are incubated with monoclonal/polyclonal antibodies/oligonucleotide probes. Localization is made via biotin free immunoperoxidase method. Appropriate controls are performed and reacted as expected. Results on target cell population are indicated in the following table: RESULTS: ANTIBODY / CLONE RESULT Block A H Pylori (polyclonal) negative Block B H Pylori (polyclonal) negative These tests were developed and their performance characteristics determined by [facility]. They may not have been cleared or approved by the U.[place]. Food and Drug Administration. The FDA has determined that such clearance or approval is not necessary. The above immunohistochemical/dualISH markers are ordered and reviewed by the Pathologist. INTERPRETATION: A. Gastric antrum, biopsy: Negative for Helicobacter pylori organisms.B. Gastric body, biopsy: Negative for Helicobacter pylori organisms. 11/18/2024
--- NOTE | 2024-11-17 10:53 | OP.CCLET_ITS ---
11/17/2024 Ha Leone Re : Upper GI endoscopy procedure for Mare Lozano Dear Kendrick This procedure was performed on Sunday, November 17, 2024. My impressions and recommendations are as follows: Impressions : - Z-line irregular, 37 cm from the incisors. Biopsied. - Erythematous mucosa in the antrum. Biopsied. - Multiple gastric polyps. Resected and retrieved. - Erythematous mucosa in the gastric body. Biopsied. - Normal examined duodenum. Recommendations : - Await pathology results. - Discharge patient to home. - Resume previous diet. - Continue present medications. - Use Prilosec (omeprazole) 40 mg PO daily. - Use sucralfate tablets 1 gram PO QID for 2 weeks. My findings are described in the full procedure note, which is enclosed. If I can be of further assistance, please feel free to contact me at Doctor phone number(s): , Work: . Sincerely, MD Rosio Carmen MD 11/17/2024 10:53:07 AM This report has been signed electronically.
--- NOTE | 2024-11-17 10:53 | OP.EGD_ITS ---
Patient Name: Mare Lozano Procedure Date: 11/17/2024 10:29 AM Date of : 1970 Age: 54 Procedure: Upper GI endoscopy Indications: Epigastric abdominal pain Providers: Rosio Matute MD Referring MD: Rosio Matute MD Medicines: Monitored Anesthesia Care Patient Profile: This is a 54 year old female. Complications: No immediate complications. Procedure: Pre-Anesthesia Assessment: - Prior to the procedure, a History and Physical was performed, and patient medications and allergies were reviewed. The patient's tolerance of previous anesthesia was also reviewed. The risks and benefits of the procedure and the sedation options and risks were discussed with the patient. All questions were answered, and informed consent was obtained. Prior Anticoagulants: The patient has taken Eliquis (apixaban), last dose was 3 days prior to procedure. ASA Grade Assessment: Per anesthesia. After reviewing the risks and benefits, the patient was deemed in satisfactory condition to undergo the procedure. After obtaining informed consent, the endoscope was passed under direct vision. Throughout the procedure, the patient's blood pressure, pulse, and oxygen saturations were monitored continuously. The Endoscope was introduced through the mouth, and advanced to the second part of duodenum. The upper GI endoscopy was accomplished without difficulty. The patient tolerated the procedure well. Scope In: 10:38:28 AM Scope Out: 10:46:54 AM Total Procedure Duration Time 0 hours 8 minutes 26 seconds Findings: The Z-line was irregular and was found 37 cm from the incisors. Biopsies were taken with a cold forceps for histology. Mildly erythematous mucosa without bleeding was found in the gastric antrum. Biopsies were taken with a cold forceps for histology. Biopsies were taken with a cold forceps for Helicobacter pylori cultures. Multiple less than 5 mm semi-pedunculated polyps with no bleeding and no stigmata of recent bleeding were found in the gastric body. The polyp was removed with a cold biopsy forceps. Resection and retrieval were complete. Moderately erythematous mucosa with bleeding on contact was found in the gastric body. Biopsies were taken with a cold forceps for histology. Biopsies were taken with a cold forceps for Helicobacter pylori cultures. The examined duodenum was normal. The cardia and gastric fundus were normal on retroflexion. Impression: - Z-line irregular, 37 cm from the incisors. Biopsied. - Erythematous mucosa in the antrum. Biopsied. - Multiple gastric polyps. Resected and retrieved. - Erythematous mucosa in the gastric body. Biopsied. - Normal examined duodenum. Recommendation: - Await pathology results. - Discharge patient to home. - Resume previous diet. - Continue present medications. - Use Prilosec (omeprazole) 40 mg PO daily. - Use sucralfate tablets 1 gram PO QID for 2 weeks. Procedure Code(s): --- Professional --- 86443, PT, Esophagogastroduodenoscopy, flexible, transoral; with biopsy, single or multiple Diagnosis Code(s): --- Professional --- K22.89, Other specified disease of esophagus K31.89, Other diseases of stomach and duodenum K31.7, Polyp of stomach and duodenum R10.13, Epigastric pain CPT copyright 2021 [employer]. All rights reserved. The codes documented in this report are preliminary and upon artist color separation review may be revised to meet current compliance requirements. MD Rosio Carmen MD 11/17/2024 10:53:07 AM This report has been signed electronically. Number of Addenda: 0 Note Initiated On: 11/17/2024 10:29 AM
--- NOTE | 2024-11-17 10:56 | PCM.POST.ANE ---
Anesthesia: Postop Eval I Current Vital Signs Temperature: 97.9 F Pulse Rate: 87 Blood Pressure: 127/72 Respiratory Rate: 16 Pulse Ox: 96 Oxygen Delivery Method: Room Air Assessment Airway patent: Yes Spontaneous unlabored respirations: Yes Mental status: Awake nausea: No Vomiting: No Anesthesia Complication: No Fluid Hydration Crystalloid volume administer (ml): 30 Total IV fluid infused: 30 Progress Note Anesthesia document: Postop Eval 1 completed: Yes
== END 2024-11-17 11:34 | disposition home or self-care (01) ==
LOC: EN 08:31 → AC 08:34
PROVIDERS: PCP Nurse Practitioner Family; Referring Provider Nurse Practitioner Family; Visit Provider Surgery
PROC: 0DJ08ZZ Inspection of Upper Intestinal Tract, Via Natural or Artificial Opening Endoscopic (ICD-10-PCS; CPT 43235; principal; 2024-11-17 10:10)
DX: K22.89 Other specified disease of esophagus (principal); K31.7 Polyp of stomach and duodenum; K31.89 Other diseases of stomach and duodenum; Z79.01 Long term (current) use of anticoagulants; Z86.718 Personal history of other venous thrombosis and embolism; Z80.0 Family history of malignant neoplasm of digestive organs
CPT/HCPCS: 43239; 88305; 88342; A4216; J2405